=== PATIENT | male | born 1985 | race Caucasian/White ===

== ENCOUNTER 2017-08-02 23:55 | Emergency (ER) | payer OTHER ==
[~2017-08-02] VITALS: Ht 182.9 cm; Wt 110.0 kg
[2017-08-03 00:04] VITALS: BP 149/65; PULSE 93; RESP 18; TEMP 98.2; O2SAT 97
--- NOTE | 2017-08-03 00:14 | PD ---
HPI Chief Complaint: Laceration/Skin Injury Time Seen by Provider: 00:12 Travel History International Travel<30 days: No Contact w/Intl Traveler<30days: No Traveled to known affect area: No History of Present Illness HPI Right-hand dominant male presents for evaluation of a laceration left thumb. It was sustained at 3 PM today when he was cutting lettuce and the knife slipped. He has pain at the site of a laceration, aching, worse with palpation. Denies any numbness or tingling. Last tetanus vaccination within 1 year. No other complaints. PFSH Past Medical History Cancer: Yes (testicular CA) Diminished Hearing: No Tetanus Vaccination: < 5 Years Past Surgical History Other Surgery: Yes (infusa port placement, testicular removal from [place]) Social History Alcohol Use: No Tobacco Use: No Substance Use: No Allergies-Medications (Allergen,Severity, Reaction): Coded Allergies: Iodinated Contrast- Oral and IV Dye (Verified Allergy, Severe, 08/03/17) Review of Systems Musculoskeletal: Positive: Pain Skin: Positive Other (Laceration, minor bleeding) Neurologic: No: Paresthesia Physical Exam Narrative GENERAL: Well-developed well-nourished male no acute distress SKIN: Warm and dry. Examination left thumb reveals a 0.5 cm laceration on the dorsal distal aspect of the left thumb primarily involving the fingernail. There is a small amount of tissue involvement as well. CARDIOVASCULAR: Regular rate and rhythm. No murmur appreciated. RESPIRATORY: No accessory muscle use. Clear to auscultation. Breath sounds equal bilaterally. MUSCULOSKELETAL: Skin as noted above. No open bony injury. Full range of motion of thumb. Distal sensation preserved. NEUROLOGICAL: Awake and alert. No obvious cranial nerve deficits. Motor grossly within normal limits. Normal speech. Data Data Last Documented VS Vital Signs Date Time Temp Pulse Resp B/P (MAP) Pulse Ox O2 Delivery O2 Flow Rate FiO2 08/03/17 00:04 98.2 93 18 149/65 (93) 97 MDM Medical Decision Making Medical Screen Exam Complete: Yes Emergency Medical Condition: Yes Medical Record Reviewed: Yes Differential Diagnosis Tissue laceration, fingernail avulsion, finger tissue avulsion Narrative Course Patient has a minor laceration of the distal left thumb primarily involving the nail itself. There is some tissue involvement and it is reasonable to repair the wound. He is strongly preferential to Dermabond repair as opposed to sutures and this seems reasonable. Procedures Procedure Narrative LACERATION LOCATION: Left thumb LENGTH: 0.5 cm NUMBER OF STITCHES/DONALD: Dermabond REPAIR: The wound was copiously irrigated and explored without evidence of foreign body, tendon injury or neurovascular injury. The wound was closed using Dermabond. This was a single layer repair. A sterile dressing was applied. The patient was advised to keep the dressing clean and dry. Patient tolerated the procedure well. Diagnosis Primary Impression: Laceration of left thumb Additional Instructions: Keep the wound clean and dry. Do not put any creams or lotions on the wound. The glue will flake off on its own over the next few weeks. Med/Other Pt SpecificInfo: Wound Care Disposition: DISCHARGE HOME Condition: Stable Henrry Landers Aug 03, 2017 00:14
== END 2017-08-03 01:08 | disposition home or self-care (01) ==
LOC: NEPD 23:55
DX: S61.012A Laceration without foreign body of left thumb without damage to nail, initial encounter (principal); W26.0XXA Contact with knife, initial encounter; Y93.G1 Activity, food preparation and clean up; Z85.47 Personal history of malignant neoplasm of testis
CPT/HCPCS: 12001